=== PATIENT | male | born 1955 | race Caucasian/White ===

== ENCOUNTER 2024-03-31 11:37 | Observation (INO) ==
--- NOTE | 2024-03-31 11:53 | Emergency Department Note ---
Impression & Plan Nausea & vomiting ADMIT ED Provider Note HPI: History obtained from patient. The patient is a 69-year-old gentleman with history of depression, hyperlipidemia, presents the emergency department with chief complaint of acute onset nausea and vomiting as well as diaphoresis that began about 1 hour prior to arrival to the ER. Patient states he began to feel acutely unwell at this time and had several episodes of vomiting. Patient was with a friend at the time he contacted EMS for the patient to come to the ER to be assessed. Patient denies any chest pain, denies any abdominal pain. On arrival here to the ED the patient is hemodynamically stable although he is somewhat diaphoretic and generally appears to be in mild distress secondary to his nausea/vomiting. ROS: - Per HPI Differential Diagnosis: Acute coronary syndrome, small bowel obstruction, aortic dissection, viral gastroenteritis, acute appendicitis, acute cholecystitis, migraine complex, new onset DKA, amongst other potential pathologies. *Outpatient medications and allergy history reviewed. 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 Lab work shows no leukocytosis, hemoglobin is normal at 14.0, platelet count is normal, CMP does not show any evidence of any critical findings, troponin is noted to be negative x 1, lactic acid is mildly elevated at 2.2. Patient was given IV fluids here in the ED, EKG does not show any evidence of acute ischemic changes. CT imaging of the chest as well as CT imaging of the abdomen pelvis were performed given the patient's clinical appearance on arrival with nausea and vomiting, this does not show any evidence of aortic dissection, no evidence of any acute surgical abnormalities noted within the abdomen/pelvis per the interpreting radiologist. Chest x-ray did show some evidence of nonspecific interstitial thickening, given the patient's nausea and vomiting blood cultures were ordered and he was given a dose of IV Unasyn. He was noted to have some hypoxia on room air here after vomiting down to 77% O2 saturation that did improve with nasal cannula oxygen. On my reassessment the patient states he is feeling improved, he was noted to have some hypothermia here in the ED on rectal temperature to 34.5 Celsius and was placed on Santhosh hugger and given warmed IV fluids with good improvement in temperature back to normal limits. Given his constellation of symptoms, hypothermia, as well as possible concern for aspiration pneumonia with an episode of hypoxia, I did discuss the patient's presentation with the on-call hospitalist, Dr. Petty, and the patient will be admitted to the hospitalist service for further management. Prior to admission the patient states he did have a mild headache today, he states that he had surgery on his nasal septum about 3 weeks ago at [facility]. I do not see any obvious abnormalities within the nasal cavity, will defer to the hospitalist service for further management at this time. Patient has no fever, no leukocytosis, no neutrophilic predominance on CBC with differential, I have low suspicion for meningitis at this time. Consultants/Discussions held with other healthcare providers: -Hospitalist, Dr. Petty Disposition discussion held by myself with: -Patient Diagnosis: 1. Hypoxia, acute 2. Concern for aspiration pneumonia 3. Nausea and vomiting, acute 4. Lactic acidosis, acute Disposition: Admission Jayson Henry DO Emergency Medicine Past Med/Surg History Problem List (Updated 03/31/24 @ 15:52 by Ventura Petty MD) Hypothermia Nausea and vomiting Hyperlipidemia Depression Macular degeneration Vision problem Medical History (Updated 03/31/24 @ 15:52 by Ventura Petty MD) Kidney stone Surgical History (Updated 11/07/23 @ 09:15 by Julianne Sandoval LPN) Status post panniculectomy History of hernia surgery History of carpal tunnel release History of prostatectomy Family History (Updated 11/07/23 @ 09:16 by Julianne Sandoval LPN) Other Family history unknown Social History (Updated 11/09/23 @ 10:45 by Julianne Sandoval LPN) Smoking Status: Unknown if ever smoked Age Started Using Tobacco: 13; Age Quit Using Tobacco: 45; packs per day: 2; Do You Dip or Chew Tobacco: No; Hx Alcohol Use: No Hx Substance Use: No Visual Impairment: Partially Limited marital status: / Current Living Situation: Significant Other Current Living Situation Comment: Lives with girlfriend current occupational status: retired Feels Safe at Home: Yes Diet: regular caffeine: Yes Dental Care, Regularly: No Physical Activity Frequency: 1-2 Times per Week Seatbelt Use: always Sunscreen Use: Yes Assistive Devices: Denture - Upper, Denture - Lower and Glasses Allergies Allergies Allergy/AdvReac Type Severity Reaction Status Date / Time No Known Allergies Allergy Verified 03/31/24 15:30 Home Meds Previous Rx's Medication Instructions Recorded atorvastatin 40 mg tablet 40 mg PO DAILY #30 tabs 11/07/23 fluticasone propionate 50 1 spray intranasal DAILY #16 grams 11/07/23 mcg/actuation nasal spray,suspension (Allergy Relief (fluticasone)) sertraline 50 mg tablet 50 mg PO DAILY #30 tabs 11/07/23 vitamins A,C,[id number] 4,296 1 cap PO BID #60 caps 11/07/23 mcg-226 mg-90 mg capsule (PreserVision AREDS) Results & Data (ED) Vital Signs Vital Signs - 24 hr 03/31/24 11:44 03/31/24 12:15 03/31/24 12:18 Temperature Temperature Source Pulse Rate 67 68 Pulse Rate [Apical] Pulse Rate from SpO2 Sensor 67 Pulse Rhythm [Apical] Respiratory Rate 25 H 10 L Respiratory Effort / Characteristics Respiratory Depth Respiratory Pattern Blood Pressure 134/86 126/64 Blood Pressure [Right Arm] Blood Pressure Mean 102 82 Blood Pressure Mean [Right Arm] Pulse Oximetry 98 95 Oxygen Delivery Method Room Air Oxygen Flow Rate Sepsis Recent Fever Within 48 Hours No Sepsis New/Unexplained Change in Mental Status N/A Sepsis Action Taken by Nursing No Action Required 03/31/24 12:18 03/31/24 12:21 03/31/24 12:22 Temperature Temperature Source Pulse Rate 66 75 Pulse Rate [Apical] Pulse Rate from SpO2 Sensor 75 Pulse Rhythm [Apical] Respiratory Rate 19 Respiratory Effort / Characteristics Respiratory Depth Respiratory Pattern Blood Pressure Blood Pressure [Right Arm] Blood Pressure Mean Blood Pressure Mean [Right Arm] Pulse Oximetry 99 95 Oxygen Delivery Method Room Air Oxygen Flow Rate Sepsis Recent Fever Within 48 Hours Sepsis New/Unexplained Change in Mental Status Sepsis Action Taken by Nursing 03/31/24 12:22 03/31/24 12:25 03/31/24 12:25 Temperature 34.5 C L Temperature Source Rectal Pulse Rate 68 Pulse Rate [Apical] 68 Pulse Rate from SpO2 Sensor Pulse Rhythm [Apical] Regular Respiratory Rate 16 Respiratory Effort / Characteristics Non-Labored Spontaneous Respiratory Depth Normal Respiratory Pattern Regular Blood Pressure 130/68 Blood Pressure [Right Arm] 137/73 Blood Pressure Mean 80 Blood Pressure Mean [Right Arm] 94 Pulse Oximetry 92 91 Oxygen Delivery Method Room Air Room Air Oxygen Flow Rate Sepsis Recent Fever Within 48 Hours Sepsis New/Unexplained Change in Mental Status Sepsis Action Taken by Nursing 03/31/24 12:25 03/31/24 12:25 03/31/24 12:27 Temperature Temperature Source Pulse Rate Pulse Rate [Apical] Pulse Rate from SpO2 Sensor 69 Pulse Rhythm [Apical] Respiratory Rate 15 Respiratory Effort / Characteristics Respiratory Depth Respiratory Pattern Blood Pressure 130/68 130/68 Blood Pressure [Right Arm] Blood Pressure Mean 80 80 Blood Pressure Mean [Right Arm] Pulse Oximetry 97 Oxygen Delivery Method Oxygen Flow Rate Sepsis Recent Fever Within 48 Hours Sepsis New/Unexplained Change in Mental Status Sepsis Action Taken by Nursing 03/31/24 12:30 03/31/24 12:35 03/31/24 12:35 Temperature Temperature Source Pulse Rate 70 Pulse Rate [Apical] Pulse Rate from SpO2 Sensor 70 Pulse Rhythm [Apical] Respiratory Rate 12 Respiratory Effort / Characteristics Respiratory Depth Respiratory Pattern Blood Pressure 142/73 H 142/73 H Blood Pressure [Right Arm] Blood Pressure Mean 101 101 Blood Pressure Mean [Right Arm] Pulse Oximetry 96 Oxygen Delivery Method Oxygen Flow Rate Sepsis Recent Fever Within 48 Hours Sepsis New/Unexplained Change in Mental Status Sepsis Action Taken by Nursing 03/31/24 12:40 03/31/24 12:45 03/31/24 12:48 Temperature Temperature Source Pulse Rate 64 67 Pulse Rate [Apical] Pulse Rate from SpO2 Sensor 65 67 Pulse Rhythm [Apical] Respiratory Rate 13 20 Respiratory Effort / Characteristics Respiratory Depth Respiratory Pattern Blood Pressure 131/75 Blood Pressure [Right Arm] Blood Pressure Mean 87 Blood Pressure Mean [Right Arm] Pulse Oximetry 77 L 99 99 Oxygen Delivery Method Nasal Cannula Oxygen Flow Rate 3 Sepsis Recent Fever Within 48 Hours Sepsis New/Unexplained Change in Mental Status Sepsis Action Taken by Nursing 03/31/24 12:50 03/31/24 12:50 03/31/24 13:18 Temperature Temperature Source Pulse Rate 70 Pulse Rate [Apical] Pulse Rate from SpO2 Sensor 70 Pulse Rhythm [Apical] Respiratory Rate 15 Respiratory Effort / Characteristics Respiratory Depth Respiratory Pattern Blood Pressure 140/71 140/71 Blood Pressure [Right Arm] Blood Pressure Mean 90 90 Blood Pressure Mean [Right Arm] Pulse Oximetry 100 Oxygen Delivery Method Oxygen Flow Rate Sepsis Recent Fever Within 48 Hours Sepsis New/Unexplained Change in Mental Status Sepsis Action Taken by Nursing 03/31/24 13:20 03/31/24 13:20 03/31/24 13:20 Temperature Temperature Source Pulse Rate Pulse Rate [Apical] Pulse Rate from SpO2 Sensor Pulse Rhythm [Apical] Respiratory Rate Respiratory Effort / Characteristics Respiratory Depth Respiratory Pattern Blood Pressure 128/68 128/68 128/68 Blood Pressure [Right Arm] Blood Pressure Mean 88 88 88 Blood Pressure Mean [Right Arm] Pulse Oximetry Oxygen Delivery Method Oxygen Flow Rate Sepsis Recent Fever Within 48 Hours Sepsis New/Unexplained Change in Mental Status Sepsis Action Taken by Nursing 03/31/24 13:21 03/31/24 13:30 03/31/24 13:30 Temperature Temperature Source Pulse Rate 68 Pulse Rate [Apical] Pulse Rate from SpO2 Sensor 68 Pulse Rhythm [Apical] Respiratory Rate 16 Respiratory Effort / Characteristics Respiratory Depth Respiratory Pattern Blood Pressure 129/69 129/69 Blood Pressure [Right Arm] Blood Pressure Mean 83 83 Blood Pressure Mean [Right Arm] Pulse Oximetry 99 Oxygen Delivery Method Oxygen Flow Rate Sepsis Recent Fever Within 48 Hours Sepsis New/Unexplained Change in Mental Status Sepsis Action Taken by Nursing 03/31/24 13:30 03/31/24 13:33 03/31/24 13:36 Temperature Temperature Source Pulse Rate 69 68 Pulse Rate [Apical] Pulse Rate from SpO2 Sensor 69 68 Pulse Rhythm [Apical] Respiratory Rate 14 17 Respiratory Effort / Characteristics Respiratory Depth Respiratory Pattern Blood Pressure 129/69 Blood Pressure [Right Arm] Blood Pressure Mean 83 Blood Pressure Mean [Right Arm] Pulse Oximetry 100 99 Oxygen Delivery Method Oxygen Flow Rate Sepsis Recent Fever Within 48 Hours Sepsis New/Unexplained Change in Mental Status Sepsis Action Taken by Nursing 03/31/24 13:50 03/31/24 14:00 03/31/24 14:00 Temperature 34.1 C L Temperature Source Rectal Pulse Rate Pulse Rate [Apical] 67 Pulse Rate from SpO2 Sensor Pulse Rhythm [Apical] Respiratory Rate 15 Respiratory Effort / Characteristics Non-Labored Spontaneous Respiratory Depth Normal Respiratory Pattern Blood Pressure 127/65 130/78 Blood Pressure [Right Arm] 154/94 H Blood Pressure Mean 89 107 Blood Pressure Mean [Right Arm] 114 Pulse Oximetry 95 Oxygen Delivery Method Nasal Cannula Oxygen Flow Rate 1 Sepsis Recent Fever Within 48 Hours Sepsis New/Unexplained Change in Mental Status Sepsis Action Taken by Nursing 03/31/24 14:00 03/31/24 14:00 03/31/24 14:00 Temperature Temperature Source Pulse Rate 67 Pulse Rate [Apical] Pulse Rate from SpO2 Sensor 65 Pulse Rhythm [Apical] Respiratory Rate 16 Respiratory Effort / Characteristics Respiratory Depth Respiratory Pattern Blood Pressure 130/78 130/78 Blood Pressure [Right Arm] Blood Pressure Mean 107 107 Blood Pressure Mean [Right Arm] Pulse Oximetry 100 Oxygen Delivery Method Oxygen Flow Rate Sepsis Recent Fever Within 48 Hours Sepsis New/Unexplained Change in Mental Status Sepsis Action Taken by Nursing 03/31/24 14:03 03/31/24 14:10 03/31/24 14:10 Temperature Temperature Source Pulse Rate 67 Pulse Rate [Apical] Pulse Rate from SpO2 Sensor 67 Pulse Rhythm [Apical] Respiratory Rate 17 Respiratory Effort / Characteristics Respiratory Depth Respiratory Pattern Blood Pressure 135/73 135/73 Blood Pressure [Right Arm] Blood Pressure Mean 85 85 Blood Pressure Mean [Right Arm] Pulse Oximetry 99 Oxygen Delivery Method Oxygen Flow Rate Sepsis Recent Fever Within 48 Hours Sepsis New/Unexplained Change in Mental Status Sepsis Action Taken by Nursing 03/31/24 14:10 03/31/24 14:20 03/31/24 14:21 Temperature Temperature Source Pulse Rate 68 Pulse Rate [Apical] Pulse Rate from SpO2 Sensor 69 Pulse Rhythm [Apical] Respiratory Rate 10 L Respiratory Effort / Characteristics Respiratory Depth Respiratory Pattern Blood Pressure 135/73 154/94 H Blood Pressure [Right Arm] Blood Pressure Mean 85 104 Blood Pressure Mean [Right Arm] Pulse Oximetry 97 Oxygen Delivery Method Oxygen Flow Rate Sepsis Recent Fever Within 48 Hours Sepsis New/Unexplained Change in Mental Status Sepsis Action Taken by Nursing 03/31/24 14:22 03/31/24 14:30 03/31/24 14:30 Temperature 34.3 C L Temperature Source Oral Pulse Rate Pulse Rate [Apical] Pulse Rate from SpO2 Sensor Pulse Rhythm [Apical] Respiratory Rate Respiratory Effort / Characteristics Respiratory Depth Respiratory Pattern Blood Pressure 105/74 105/74 Blood Pressure [Right Arm] Blood Pressure Mean 80 80 Blood Pressure Mean [Right Arm] Pulse Oximetry Oxygen Delivery Method Oxygen Flow Rate Sepsis Recent Fever Within 48 Hours Sepsis New/Unexplained Change in Mental Status Sepsis Action Taken by Nursing 03/31/24 14:30 03/31/24 14:30 03/31/24 14:30 Temperature Temperature Source Pulse Rate 70 Pulse Rate [Apical] Pulse Rate from SpO2 Sensor 70 Pulse Rhythm [Apical] Respiratory Rate 14 Respiratory Effort / Characteristics Respiratory Depth Respiratory Pattern Blood Pressure 105/74 105/74 Blood Pressure [Right Arm] Blood Pressure Mean 80 80 Blood Pressure Mean [Right Arm] Pulse Oximetry 97 Oxygen Delivery Method Oxygen Flow Rate Sepsis Recent Fever Within 48 Hours Sepsis New/Unexplained Change in Mental Status Sepsis Action Taken by Nursing 03/31/24 14:40 03/31/24 14:51 03/31/24 14:51 Temperature Temperature Source Pulse Rate Pulse Rate [Apical] Pulse Rate from SpO2 Sensor Pulse Rhythm [Apical] Respiratory Rate Respiratory Effort / Characteristics Respiratory Depth Respiratory Pattern Blood Pressure 139/72 134/70 134/70 Blood Pressure [Right Arm] Blood Pressure Mean 100 102 102 Blood Pressure Mean [Right Arm] Pulse Oximetry Oxygen Delivery Method Oxygen Flow Rate Sepsis Recent Fever Within 48 Hours Sepsis New/Unexplained Change in Mental Status Sepsis Action Taken by Nursing 03/31/24 14:51 03/31/24 14:57 03/31/24 15:00 Temperature Temperature Source Pulse Rate 77 78 Pulse Rate [Apical] Pulse Rate from SpO2 Sensor 77 78 Pulse Rhythm [Apical] Respiratory Rate 16 12 Respiratory Effort / Characteristics Respiratory Depth Respiratory Pattern Blood Pressure 133/65 Blood Pressure [Right Arm] Blood Pressure Mean 78 Blood Pressure Mean [Right Arm] Pulse Oximetry 97 96 Oxygen Delivery Method Oxygen Flow Rate Sepsis Recent Fever Within 48 Hours Sepsis New/Unexplained Change in Mental Status Sepsis Action Taken by Nursing 03/31/24 15:00 03/31/24 15:03 03/31/24 15:10 Temperature Temperature Source Pulse Rate 76 Pulse Rate [Apical] Pulse Rate from SpO2 Sensor 76 Pulse Rhythm [Apical] Respiratory Rate 15 Respiratory Effort / Characteristics Respiratory Depth Respiratory Pattern Blood Pressure 133/65 133/66 Blood Pressure [Right Arm] Blood Pressure Mean 78 75 Blood Pressure Mean [Right Arm] Pulse Oximetry 98 Oxygen Delivery Method Oxygen Flow Rate Sepsis Recent Fever Within 48 Hours Sepsis New/Unexplained Change in Mental Status Sepsis Action Taken by Nursing 03/31/24 15:13 03/31/24 15:24 Temperature 36.4 C Temperature Source Oral Pulse Rate 74 Pulse Rate [Apical] Pulse Rate from SpO2 Sensor 74 Pulse Rhythm [Apical] Respiratory Rate 14 Respiratory Effort / Characteristics Respiratory Depth Respiratory Pattern Blood Pressure Blood Pressure [Right Arm] Blood Pressure Mean Blood Pressure Mean [Right Arm] Pulse Oximetry 96 Oxygen Delivery Method Oxygen Flow Rate Sepsis Recent Fever Within 48 Hours Sepsis New/Unexplained Change in Mental Status Sepsis Action Taken by Nursing Laboratory Data 03/31/24 12:07 03/31/24 12:07 Lab Results 03/31/24 03/31/24 03/31/24 Range/Units 11:44 12:01 12:07 WBC 7.74 (4.8-10.8) K/ul RBC 4.60 L (4.70-6.10) M/uL Hgb 14.0 (14.0-18.0) g/dl POC Hgb 13.9 L (14.0-18.0) g/dl Hct 40.6 L (42.0-52.0) % POC Hct 41 L (42-52) % MCV 88.3 (80.0-100.0) fL MCH 30.4 (25.0-34.0) pg MCHC 34.5 (32.0-36.0) g/dL RDW Std Deviation 44.0 (36.4-46.3) fL RDW Coeff of Myrna 13.4 (11.5-14.5) % Plt Count 225 (130-400) K/uL MPV 9.2 L (9.4-12.4) fL Immature Gran % (Auto) 0.4 % Neut % (Auto) 66.6 % Lymph % (Auto) 25.1 % [place] % (Auto) 6.1 % Eos % (Auto) 1.2 % Baso % (Auto) 0.6 % Neut # (Auto) 5.16 (1.40-6.50) K/uL Lymph # (Auto) 1.94 (1.20-3.40) K/uL [place] # (Auto) 0.47 (0.11-0.59) K/uL Eos # (Auto) 0.09 (0.00-0.50) K/uL Baso # (Auto) 0.05 (0.00-0.20) K/uL Immature Gran # (Auto) 0.03 (0.01-0.20) K/uL ESR 44 H (0-20) mm/hr PT 10.9 (9.0-12.0) Seconds INR 1.0 (0.9-1.1) APTT 24 (21-31) Seconds PTT Ratio 0.9 POC Sodium 139 (135-144) mmol/L Sodium 138 (136-145) mmol/L POC Potassium 3.6 (3.3-5.0) mmol/L Potassium 3.6 (3.5-5.1) mmol/L POC Chloride 105 (101-112) mmol/L Chloride 103 (98-107) mmol/L Carbon Dioxide 23 (21-32) mmol/L POC Total CO2 22 L (24-31) mmol/L Anion Gap 12 H (3-11) POC Anion Gap 17.0 (16-25) mmol/L POC BUN 14 (7-18) mg/dl BUN 14 (6-23) mg/dl Creatinine 0.78 (0.6-1.4) mg/dl POC Creatinine 0.8 (0.6-1.3) mg/dl Est Cr Clr Drug Dosing 82.0 ml/min Est GFR ( Amer) 105.3 ml/min Est GFR (Non-Af Amer) 90.8 ml/min BUN/Creatinine Ratio 17.9 (10-20) Glucose 152 H (70-99(Fasting)) mg/dl POC Glucose 152 H (70-99) mg/dl POC Glucose (other) 154 H (70-99) mg/dl Lactate 2.2 H* (0.4-2.0) mmol/L Calcium 9.5 (8.6-10.3) mg/dl POC Ioniz Calcium [place] 1.09 L (1.12-1.32) mmol/l Phosphorus 3.2 (2.5-4.9) mg/dl Magnesium 1.9 (1.7-2.4) mg/dl Total Bilirubin 0.7 (0.2-1.0) mg/dl AST 24 (13-39) U/L ALT 16 (7-52) U/L Alkaline Phosphatase 74 (34-104) U/L Troponin I High Sens 3.6 (0-20) pg/ml C-Reactive Protein < 0.50 (0-0.5) mg/dl Total Protein 8.3 (6.0-8.3) gm/dl Albumin 4.4 (3.4-5.0) gm/dl Globulin 3.9 (2.5-4.0) gm/dl Albumin/Globulin Ratio 1.1 (0.9-2) Lipase 34 (11-82) U/L TSH 2.194 (0.300-4.500) uIu/ml Ethyl Alcohol mg/dL (<10.0) mg/dl Adenovirus (PCR) (NotDetected) B. pertussis DNA (PCR) (NotDetected) B.parapertussis DNA PCR (NotDetected) C. pneumoniae DNA (PCR) (NotDetected) Coronavirus OC43 (PCR) (NotDetected) Coronavirus HKU1 (PCR) (NotDetected) Coronavirus 229E (PCR) (NotDetected) SARS-CoV-2 (PCR) (NotDetected) Coronavirus NL63 (PCR) (NotDetected) Human Metapneumovir PCR (NotDetected) Influenza Type A (PCR) (NotDetected) Influenza Type B (PCR) (NotDetected) M. pneumoniae (PCR) (NotDetected) Parainfluenza 1 (PCR) (NotDetected) Parainfluenza 2 (PCR) (NotDetected) Parainfluenza 3 (PCR) (NotDetected) Parainfluenza 4 (PCR) (NotDetected) RSV (PCR) (NotDetected) Entero/Rhino (PCR) (NotDetected) 03/31/24 03/31/24 Range/Units 12:32 14:17 WBC (4.8-10.8) K/ul RBC (4.70-6.10) M/uL Hgb (14.0-18.0) g/dl POC Hgb (14.0-18.0) g/dl Hct (42.0-52.0) % POC Hct (42-52) % MCV (80.0-100.0) fL MCH (25.0-34.0) pg MCHC (32.0-36.0) g/dL RDW Std Deviation (36.4-46.3) fL RDW Coeff of Myrna (11.5-14.5) % Plt Count (130-400) K/uL MPV (9.4-12.4) fL Immature Gran % (Auto) % Neut % (Auto) % Lymph % (Auto) % [place] % (Auto) % Eos % (Auto) % Baso % (Auto) % Neut # (Auto) (1.40-6.50) K/uL Lymph # (Auto) (1.20-3.40) K/uL [place] # (Auto) (0.11-0.59) K/uL Eos # (Auto) (0.00-0.50) K/uL Baso # (Auto) (0.00-0.20) K/uL Immature Gran # (Auto) (0.01-0.20) K/uL ESR (0-20) mm/hr PT (9.0-12.0) Seconds INR (0.9-1.1) APTT (21-31) Seconds PTT Ratio POC Sodium (135-144) mmol/L Sodium (136-145) mmol/L POC Potassium (3.3-5.0) mmol/L Potassium (3.5-5.1) mmol/L POC Chloride (101-112) mmol/L Chloride (98-107) mmol/L Carbon Dioxide (21-32) mmol/L POC Total CO2 (24-31) mmol/L Anion Gap (3-11) POC Anion Gap (16-25) mmol/L POC BUN (7-18) mg/dl BUN (6-23) mg/dl Creatinine (0.6-1.4) mg/dl POC Creatinine (0.6-1.3) mg/dl Est Cr Clr Drug Dosing ml/min Est GFR ( Amer) ml/min Est GFR (Non-Af Amer) ml/min BUN/Creatinine Ratio (10-20) Glucose (70-99(Fasting)) mg/dl POC Glucose (70-99) mg/dl POC Glucose (other) (70-99) mg/dl Lactate 1.8 (0.4-2.0) mmol/L Calcium (8.6-10.3) mg/dl POC Ioniz Calcium [place] (1.12-1.32) mmol/l Phosphorus (2.5-4.9) mg/dl Magnesium (1.7-2.4) mg/dl Total Bilirubin (0.2-1.0) mg/dl AST (13-39) U/L ALT (7-52) U/L Alkaline Phosphatase (34-104) U/L Troponin I High Sens (0-20) pg/ml C-Reactive Protein (0-0.5) mg/dl Total Protein (6.0-8.3) gm/dl Albumin (3.4-5.0) gm/dl Globulin (2.5-4.0) gm/dl Albumin/Globulin Ratio (0.9-2) Lipase (11-82) U/L TSH (0.300-4.500) uIu/ml Ethyl Alcohol mg/dL < 10.0 (<10.0) mg/dl Adenovirus (PCR) Not Detected (NotDetected) B. pertussis DNA (PCR) Not Detected (NotDetected) B.parapertussis DNA PCR Not Detected (NotDetected) C. pneumoniae DNA (PCR) Not Detected (NotDetected) Coronavirus OC43 (PCR) Not Detected (NotDetected) Coronavirus HKU1 (PCR) Not Detected (NotDetected) Coronavirus 229E (PCR) Not Detected (NotDetected) SARS-CoV-2 (PCR) Not Detected (NotDetected) Coronavirus NL63 (PCR) Not Detected (NotDetected) Human Metapneumovir PCR Not Detected (NotDetected) Influenza Type A (PCR) Not Detected (NotDetected) Influenza Type B (PCR) Not Detected (NotDetected) M. pneumoniae (PCR) Not Detected (NotDetected) Parainfluenza 1 (PCR) Not Detected (NotDetected) Parainfluenza 2 (PCR) Not Detected (NotDetected) Parainfluenza 3 (PCR) Not Detected (NotDetected) Parainfluenza 4 (PCR) Not Detected (NotDetected) RSV (PCR) Not Detected (NotDetected) Entero/Rhino (PCR) Not Detected (NotDetected) Administered Medications Discontinued Medications Sodium Chloride (Nss) 1,000 mls @ 999 mls/hr IV .Q1H1M STA Stop: 03/31/24 12:51 Last Infusion: 03/31/24 14:34 Dose: Infused Documented By: Admin: 03/31/24 12:06 Dose: 999 mls/hr Documented By: KATHRYN Sodium Chloride (Nss) 1,000 mls @ 999 mls/hr IV .Q1H1M ONE Stop: 03/31/24 15:20 Last Infusion: 03/31/24 15:34 Dose: Infused Documented By: Admin: 03/31/24 14:31 Dose: 999 mls/hr Documented By: KATHRYN Ampicillin Sodium/Sulbactam Sodium 3,000 mg/ Sodium Chloride 100 mls @ 200 mls/hr IV NOW STA Stop: 03/31/24 14:50 Last Infusion: 03/31/24 15:36 Dose: Infused Documented By: Admin: 03/31/24 15:05 Dose: 200 mls/hr Documented By: KATHRYN Ioversol (Optiray 320 125ml) 112 ml IV ONCE ONE Stop: 03/31/24 12:59 Last Admin: 03/31/24 12:59 Dose: 112 ml Documented By: TERESO Ondansetron HCl (Ondansetron Inj 2 Mg/Ml 2 Ml Vial) 4 mg IV NOW STA Stop: 03/31/24 11:52 Last Admin: 03/31/24 12:06 Dose: 4 mg Documented By: [facility] Data Radiologist's Impression: Chest X-Ray 03/31/24 11:51 XR chest 1V portable HISTORY: Chest pain, nonspecific COMPARISON: None. FINDINGS: No pneumothorax. No pleural effusions. Slightly rotated study. The cardiac silhouette is borderline enlarged. No evidence for pulmonary edema. No acute fractures. Bibasilar interstitial thickening is noted. Suspect mild emphysema. IMPRESSION: Bibasilar interstitial thickening. This is nonspecific and could be due to vascular crowding, chronic change, or an interstitial pneumonitis. This will be better assessed on the same day chest CTA. ACT 112: Negative or not required by law. Electronically signed by: Barrie Oden M.D. 03/31/2024 12:54 PM Abdomen/Pelvis CT 03/31/24 12:19 CT abd pelvis IV con only CLINICAL HISTORY: N/V TECHNIQUE: Helical axial images of the abdomen and pelvis were obtained and displayed. Automated dose lowering techniques and/or adjustment according to patient size were utilized for this exam. This exam was performed with intravenous contrast. COMPARISON: None available at the time of this dictation. FINDINGS: Lower chest: Bibasilar atelectasis versus scarring is seen. Liver: Unremarkable. No focal lesions are seen. Gallbladder and biliary tree: No calcified gallstones. Normal caliber wall. No intra- or extrahepatic biliary ductal dilation. Pancreas: Unremarkable, no focal lesions. Spleen: Unremarkable. Adrenals: Unremarkable. Kidneys and ureters: 14 mm hyperdense lesion in the left kidney inferior pole. Additional cysts and subcentimeter hypodensities are seen bilaterally. Bladder: Unremarkable. Reproductive organs: Status post prostatectomy. Bowel: Diverticulosis is seen without diverticulitis. The appendix is normal. There is a small hiatal hernia. Lymph nodes Retroperitoneal: Unremarkable. Pelvic: Unremarkable. Mesenteric: Unremarkable. Peritoneum: Postsurgical changes are seen in the pelvis. Vessels: Atherosclerotic calcifications are seen. Abdominal wall: Right inguinal hernia repair changes are seen. Bones: Degenerative changes in the visualized spine. IMPRESSION: No acute abnormality and in particular no evidence of bowel obstruction or appendicitis. There is a small hiatal hernia. ACT 112: Negative or not required by law. Electronically signed by: Clifton Wiggins M.D. 03/31/2024 2:10 PM Chest CTA 03/31/24 12:19 CT angio chest dissec wo/w con CLINICAL HISTORY: N/V, diaphoresis TECHNIQUE: Multidetector row helical CT of the chest was performed before and after injection of IV contrast. Coronal, sagittal, and MIP reformations were obtained. Automated dose lowering techniques and/or adjustment according to patient size were utilized for this exam. CT DOSE: 2967.48 mGy.cm Comparison: None available at the time of this dictation. FINDINGS: Lungs and pleura: Atelectasis versus scarring is seen in the dependent portions of the lungs. Peripheral predominant emphysema is seen. Heart and pericardium: Heart size is normal. No pericardial effusion. Vessels: No aortic dissection or intramural hematoma is seen. Mild atherosclerosis is seen. Mediastinum and nancy: Subcentimeter lymph nodes are seen. Chest wall and lower neck: Unremarkable. Abdomen: For findings below the diaphragm, please refer to CT of the abdomen dated the same. Bones: Degenerative changes in the thoracic spine. IMPRESSION: No acute abnormality and in particular no evidence of acute aortic injury. ACT 112: Negative or not required by law. Electronically signed by: Clifton Wiggins M.D. 03/31/2024 1:57 PM Discharge Plan Visit Data Chief Complaint: Weakness Stated Complaint: WEAKNESS, NAUSEA, VOMITING, DIZZINESS ED Provider: Jayson Henry Discharge Problem: Nausea & vomiting Forms Stand Alone Forms: [facility] Prescriptions Prescriptions: No Action sertraline 50 mg tablet 50 mg PO DAILY Qty: 30 2RF atorvastatin 40 mg tablet 40 mg PO DAILY Qty: 30 2RF fluticasone propionate [Allergy Relief (fluticasone)] 50 mcg/actuation spray,suspension 1 spray intranasal DAILY Qty: 16 2RF Rx Instructions: administer into each nostril PreserVision AREDS 4,296 mcg-226 mg-90 mg capsule 1 cap PO BID Qty: 60 2RF Referrals Referrals: Anderson Rosado, [Primary Care Provider] -
[2024-03-31] MEDS: SODIUM CHLORIDE 0.9% 1,000 ML IV STA (12:06)
[2024-03-31] MEDS: ONDANSETRON INJ 2 MG/ML 2 ML VIAL IV STA (12:06)
[2024-03-31 12:14] LABS: iSTAT Creatinine 0.8 mg/dl (0.6-1.3); iSTAT Hemoglobin 13.9 g/dl (14.0-18.0); iSTAT Ionized Calcium 1.09 mmol/l (1.12-1.32); iSTAT Potassium 3.6 mmol/L (3.3-5.0)
[2024-03-31 12:49] LABS: Basophils # (auto) 0.05 K/uL (0.00-0.20); Basophils % (auto) 0.6 %; Eosinophils # (auto) 0.09 K/uL (0.00-0.50); Eosinophils % (auto) 1.2 %; Hematocrit (blood only) 40.6 % (42.0-52.0); Immature Granulocytes # (auto) 0.03 K/uL (0.01-0.20); Immature Granulocytes % (auto) 0.4 %; Lymphocytes # (auto) 1.94 K/uL (1.20-3.40); Lymphocytes % (auto) 25.1 %; Mean Corpuscular Hemoglobin 30.4 pg (25.0-34.0); Mean Corpuscular Hgb Conc 34.5 g/dL (32.0-36.0); Mean Corpuscular Volume 88.3 fL (80.0-100.0); Mean Platelet Volume 9.2 fL (9.4-12.4); Monocytes # (auto) 0.47 K/uL (0.11-0.59); Monocytes % (auto) 6.1 %; Neutrophils # (auto) 5.16 K/uL (1.40-6.50); Neutrophils % (auto) 66.6 %; Platelet Count 225 K/uL (130-400); RDW Coefficient of Variation 13.4 % (11.5-14.5); White Blood Count 7.74 K/ul (4.8-10.8)
--- NOTE | 2024-03-31 12:55 | XRay Report ---
XR chest 1V portable HISTORY: Chest pain, nonspecific COMPARISON: None. FINDINGS: No pneumothorax. No pleural effusions. Slightly rotated study. The cardiac silhouette is keim rderline enlarged. No evidence for pulmonary edema. No acute fractures. Bibasilar interstitial thicke yue is noted. Suspect mild emphysema. IMPRESSION: Bibasilar interstitial thickening. This is nonspecific and could be due to vascular crowding, chronic change, or an interstitial pneumonitis. This will be better assessed on the same day chest CTA. ACT 112: Negative or not required by law. Electronically signed by: Barrie Oden M.D. 03/31/2024 12:54 PM
[2024-03-31 12:56] LABS: Alanine Aminotransferase 16 U/L (7-52); Albumin Globulin Ratio 1.1 (0.9-2); Albumin Level 4.4 gm/dl (3.4-5.0); Alkaline Phosphatase 74 U/L (34-104); Anion Gap 12 (3-11); Aspartate Aminotransferase 24 U/L (13-39); BUN Creatinine Ratio 17.9 (10-20); Bilirubin,Total 0.7 mg/dl (0.2-1.0); Blood Urea Nitrogen 14 mg/dl (6-23); Calcium 9.5 mg/dl (8.6-10.3); Carbon Dioxide 23 mmol/L (21-32); Chloride 103 mmol/L (98-107); Est GFR (African American) 105.3 ml/min; Est GFR (Non-African American) 90.8 ml/min; Globulin 3.9 gm/dl (2.5-4.0); Glucose 152 mg/dl (70-99(Fasting)); Lipase 34 U/L (11-82); Potassium 3.6 mmol/L (3.5-5.1); Sodium 138 mmol/L (136-145); Total Protein 8.3 gm/dl (6.0-8.3)
[2024-03-31] MEDS: OPTIRAY 320 125ml IV ONE (12:59)
[2024-03-31 13:02] LABS: Troponin I High Sensitivity 3.6 pg/ml (0-20)
[2024-03-31 13:05] LABS: Partial Thromboplastin Ratio 0.9; Partial Thromboplastin Time 24 Seconds (21-31); Prothrombin Time 10.9 Seconds (9.0-12.0)
[2024-03-31 13:40] LABS: Adenovirus PCR Not Detected (NotDetected); Bordetella parapertussis PCR Not Detected (NotDetected); Bordetella pertussis PCR Not Detected (NotDetected); Chlamydia pneumoniae PCR Not Detected (NotDetected); Coronavirus 229E PCR Not Detected (NotDetected); Coronavirus CoV-2 (COVID19)PCR Not Detected (NotDetected); Coronavirus HKU1 PCR Not Detected (NotDetected); Coronavirus NL63 PCR Not Detected (NotDetected); Coronavirus OC43PCR Not Detected (NotDetected); Human Metapneumovirus PCR Not Detected (NotDetected); Influenza A PCR Not Detected (NotDetected); Influenza B PCR Not Detected (NotDetected); Mycoplasma pneumoniae PCR Not Detected (NotDetected); Parainfluenza Virus 1 PCR Not Detected (NotDetected); Parainfluenza Virus 2 PCR Not Detected (NotDetected); Parainfluenza Virus 3 PCR Not Detected (NotDetected); Parainfluenza Virus 4 PCR Not Detected (NotDetected); Respiratory Syncytial VirusPCR Not Detected (NotDetected); Rhinovirus/Enterovirus PCR Not Detected (NotDetected)
--- NOTE | 2024-03-31 13:58 | CT Scan Report ---
CT angio chest dissec wo/w con CLINICAL HISTORY: N/V, diaphoresis TECHNIQUE: Multidetector row helical CT of the chest was performed before and after injection of IV c ontrast. Coronal, sagittal, and MIP reformations were obtained. Automated dose lowering techniques an d/or adjustment according to patient size were utilized for this exam. CT DOSE: 2967.48 mGy.cm Comparison: None available at the time of this dictation. FINDINGS: Lungs and pleura: Atelectasis versus scarring is seen in the dependent portions of the lungs. Periphe ral predominant emphysema is seen. Heart and pericardium: Heart size is normal. No pericardial effusion. Vessels: No aortic dissection or intramural hematoma is seen. Mild atherosclerosis is seen. Mediastinum and nancy: Subcentimeter lymph nodes are seen. Chest wall and lower neck: Unremarkable. Abdomen: For findings below the diaphragm, please refer to CT of the abdomen dated the same. Bones: Degenerative changes in the thoracic spine. IMPRESSION: No acute abnormality and in particular no evidence of acute aortic injury. ACT 112: Negative or not required by law. Electronically signed by: Clifton Wiggins M.D. 03/31/2024 1:57 PM
--- NOTE | 2024-03-31 14:12 | CT Scan Report ---
CT abd pelvis IV con only CLINICAL HISTORY: N/V TECHNIQUE: Helical axial images of the abdomen and pelvis were obtained and displayed. Automated dose lowering techniques and/or adjustment according to patient size were utilized for this exam. This e xam was performed with intravenous contrast. COMPARISON: None available at the time of this dictation. FINDINGS: Lower chest: Bibasilar atelectasis versus scarring is seen. Liver: Unremarkable. No focal lesions are seen. Gallbladder and biliary tree: No calcified gallstones. Normal caliber wall. No intra- or extrahepatic biliary ductal dilation. Pancreas: Unremarkable, no focal lesions. Spleen: Unremarkable. Adrenals: Unremarkable. Kidneys and ureters: 14 mm hyperdense lesion in the left kidney inferior pole. Additional cysts and s ubcentimeter hypodensities are seen bilaterally. Bladder: Unremarkable. Reproductive organs: Status post prostatectomy. Bowel: Diverticulosis is seen without diverticulitis. The appendix is normal. There is a small hiatal hernia. Lymph nodes Retroperitoneal: Unremarkable. Pelvic: Unremarkable. Mesenteric: Unremarkable. Peritoneum: Postsurgical changes are seen in the pelvis. Vessels: Atherosclerotic calcifications are seen. Abdominal wall: Right inguinal hernia repair changes are seen. Bones: Degenerative changes in the visualized spine. IMPRESSION: No acute abnormality and in particular no evidence of bowel obstruction or appendicitis. There is a s mall hiatal hernia. ACT 112: Negative or not required by law. Electronically signed by: Clifton Wiggins M.D. 03/31/2024 2:10 PM
[2024-03-31] MEDS: SODIUM CHLORIDE 0.9% 1,000 ML IV ONE (14:31)
[2024-03-31] MEDS: AMPICILLIN/SULBACTAM SOD 3,000 MG in SODIUM CHLOR 0.9% MINI-B 100 ML IV STA (15:05)
--- NOTE | 2024-03-31 15:28 | History & Physical Report ---
Date of Service March 31, 2024 Assessment & Plan (1) Nausea and vomiting: Plan: Suspect his symptoms are due to migraines given concurrent headache, years of recurrent/intermittent symptoms, not increasing in frequency/duration/severity which he has managed to sleep off for years. Usually last for about a day therefore if not improving by tomorrow will likely have to re-think the diagnosis Continue ondansetron 4mg IV q4h PRN (2) Hypothermia: Plan: Suspect environmental with him lying on the floor with his symptoms for an hour before arriving via EMS Continue Santhosh hugger TSH to rule out myxedema coma Procalcitonin and CRP/ESR to assess for infection - no source found on history/exam/imaging (3) Headache: Plan: Bilateral therefore low suspicion of cluster headaches ?Migraines although again not typical bu would fit these intermittent episodic nausea and vomiting episode that he has had for years. No focal neurology and ongoing symptoms intermittently for years without increased severity/duration/frequency will defer any brain imaging at this time Acetaminophen 1000mg IV q8h PRN Consider follow up with headache clinic Plan VTE Prophyalxis - low risk Diet - regular Disposition - observation to med/tele Admission and Anticipated Discharge Date Admission Date: March 31, 2024 History of Present Illness Chief Complaint: Headache Nausea/vomiting Primary Care Provider: DO Gilles Soto Norbert is a 69 year old male who presents to the ER with headache, nausea, vomiting and diaphoresis. Symptoms started around 10am initially with cold sweats with a warm feeling going up the back of his neck that incapacitates him. Followed by nausea, vomiting and wanting to lie down. This turned into a headache. Headache is bilateral, non pulsating, frontal, constant with current severity 8/10, without light sensitivity. No associated lacrimation or rhinorrhea. No room spinning sensation or vision changes. He denies any marijuana, smoking or alcohol use. Initially he appeared severely unwell and hypothermic that there was concern for aortic dissection or intraabdominal pathology however labs and CT C/A/P from the ER returned unremarkable. On further discussion he reports having similar episodes that occur intermittently sometimes less than once a year, sometimes multiple times a year since childhood. The episodes last for around a day and he usually just sleeps it off. He reports wanting to just sleep off this episode which feels similar to previous episodes however his friend called EMS otherwise he would not have come to the ER. Allergies Allergy/AdvReac Type Severity Reaction Status Date / Time No Known Allergies Allergy Verified 03/31/24 15:30 Home Medications Medication Instructions Recorded Confirmed Type atorvastatin 40 mg tablet 40 mg PO DAILY #30 tabs 11/07/23 03/31/24 Rx fluticasone propionate 50 1 spray intranasal DAILY #16 grams 11/07/23 03/31/24 Rx mcg/actuation nasal spray,suspension (Allergy Relief (fluticasone)) sertraline 50 mg tablet 50 mg PO DAILY #30 tabs 11/07/23 03/31/24 Rx vitamins A,C,A-huxk-crjrzb 4,296 1 cap PO BID #60 caps 11/07/23 03/31/24 Rx mcg-226 mg-90 mg capsule (PreserVision AREDS) Past Med/Surg History Problem List (Updated 03/31/24 @ 16:16 by Ventura Petty MD) Headache Hypothermia Nausea and vomiting Hyperlipidemia Depression Macular degeneration Vision problem Medical History (Updated 03/31/24 @ 16:16 by Ventura Petty MD) Kidney stone Surgical History (Updated 11/07/23 @ 09:15 by Julianne Sandoval LPN) Status post panniculectomy History of hernia surgery History of carpal tunnel release History of prostatectomy Family History (Updated 11/07/23 @ 09:16 by Julianne Sandoval LPN) Other Family history unknown Social History (Updated 11/09/23 @ 10:45 by Julianne Sandoval LPN) Smoking Status: Former smoker Age Started Using Tobacco: 13; Age Quit Using Tobacco: 45; packs per day: 2; Do You Dip or Chew Tobacco: No; Hx Alcohol Use: No Hx Substance Use: No Preferred Language: Croatian Communication Ability: Effective Visual Impairment: Partially Limited Audit Intern Required: No Beliefs That Will Affect Care: None marital status: / Current Living Situation: Significant Other Current Living Situation Comment: home living with Silvia Galvan and able to drive current occupational status: retired Feels Safe at Home: Yes Safety Concerns: Feels Safe At This Time Diet: regular caffeine: Yes Dental Care, Regularly: No Physical Activity Frequency: 1-2 Times per Week Seatbelt Use: always Sunscreen Use: Yes Assistive Devices: Denture - Upper, Denture - Lower and Glasses Review of Systems Review of Systems: All systems reviewed & are unremarkable except as noted in HPI & below Physical Exam Constitutional: WD/WN, vitals as above + disheveled Eyes: PERRL, conjunctivae normal, anicteric sclerae no nystagmus ENMT: external ear and nose normal, oropharynx normal Respiratory: normal respiratory effort, lungs clear to auscultation Cardiovascular: RRR, no murmur, no edema Gastrointestinal (Abdomen): normal bowel sounds, soft, nontender, no hepatosplenomegaly Musculoskeletal: no cyanosis or clubbing, extremities motor strength 5/5 Skin: no rashes, warm and dry Neurologic: moves all extremities and awake; no focal motor deficits and not confused Speech / Cognition: normal speech Motor/Sensory: no tremor and no pronator drift Cranial Nerves: PERRL, EOM intact bilaterally, normal facial strength, tongue midline, able to rotate head bilaterally, able to elevate shoulders bilaterally, no nystagmus and symmetric palate elevation Psychiatric: A+Ox3, euthymic affect Genitourinary: no CVA tenderness Results & Data Results & Data Vital Signs (Past 12 Hours) Vital Signs Temp Pulse Pulse Resp BP BP Pulse Ox 03/31/24 15:13 36.4 C 03/31/24 14:22 34.3 C L 03/31/24 14:21 68 10 L 97 03/31/24 14:20 154/94 H 03/31/24 14:10 135/73 03/31/24 14:10 135/73 03/31/24 14:10 135/73 03/31/24 14:03 67 17 99 03/31/24 14:00 67 16 100 03/31/24 14:00 130/78 03/31/24 14:00 130/78 03/31/24 14:00 130/78 03/31/24 14:00 34.1 C L 67 15 154/94 H 95 03/31/24 13:50 127/65 03/31/24 13:36 68 17 99 03/31/24 13:33 69 14 100 03/31/24 13:30 129/69 03/31/24 13:30 129/69 03/31/24 13:30 129/69 03/31/24 13:21 68 16 99 03/31/24 13:20 128/68 03/31/24 13:20 128/68 03/31/24 13:20 128/68 03/31/24 13:18 70 15 100 03/31/24 12:50 140/71 03/31/24 12:50 140/71 03/31/24 12:48 67 20 99 03/31/24 12:45 64 13 99 03/31/24 12:40 131/75 77 L 03/31/24 12:35 142/73 H 03/31/24 12:35 142/73 H 03/31/24 12:30 70 12 96 03/31/24 12:27 15 97 03/31/24 12:25 130/68 03/31/24 12:25 130/68 03/31/24 12:25 130/68 03/31/24 12:25 68 91 03/31/24 12:22 34.5 C L 68 16 137/73 92 03/31/24 12:22 95 03/31/24 12:21 75 19 99 03/31/24 12:18 66 03/31/24 12:18 68 10 L 95 03/31/24 12:15 126/64 03/31/24 11:44 67 25 H 134/86 98 O2 Del Method O2 Flow Rate 03/31/24 15:13 03/31/24 14:22 03/31/24 14:21 03/31/24 14:20 03/31/24 14:10 03/31/24 14:10 03/31/24 14:10 03/31/24 14:03 03/31/24 14:00 03/31/24 14:00 03/31/24 14:00 03/31/24 14:00 03/31/24 14:00 Nasal Cannula 1 03/31/24 13:50 03/31/24 13:36 03/31/24 13:33 03/31/24 13:30 03/31/24 13:30 03/31/24 13:30 03/31/24 13:21 03/31/24 13:20 03/31/24 13:20 03/31/24 13:20 03/31/24 13:18 03/31/24 12:50 03/31/24 12:50 03/31/24 12:48 03/31/24 12:45 03/31/24 12:40 Nasal Cannula 3 03/31/24 12:35 03/31/24 12:35 03/31/24 12:30 03/31/24 12:27 03/31/24 12:25 03/31/24 12:25 03/31/24 12:25 03/31/24 12:25 Room Air 03/31/24 12:22 Room Air 03/31/24 12:22 Room Air 03/31/24 12:21 03/31/24 12:18 03/31/24 12:18 03/31/24 12:15 03/31/24 11:44 Room Air Laboratory Results Abnormal lab results 03/31/24 03/31/24 03/31/24 Range/Units 11:44 12:01 12:07 RBC 4.60 L (4.70-6.10) M/uL POC Hgb 13.9 L (14.0-18.0) g/dl Hct 40.6 L (42.0-52.0) % POC Hct 41 L (42-52) % MPV 9.2 L (9.4-12.4) fL POC Total CO2 22 L (24-31) mmol/L Anion Gap 12 H (3-11) Glucose 152 H (70-99(Fasting)) mg/dl POC Glucose 152 H (70-99) mg/dl POC Glucose (other) 154 H (70-99) mg/dl Lactate 2.2 H* (0.4-2.0) mmol/L POC Ioniz Calcium Antonietta 1.09 L (1.12-1.32) mmol/l Diagnostic Findings CT angio chest dissec wo/w con CLINICAL HISTORY: N/V, diaphoresis TECHNIQUE: Multidetector row helical CT of the chest was performed before and a fter injection of IV contrast. Coronal, sagittal, and MIP reformations were obtained. Automated dose lowering techniques and/or adjustment according to patient size were utilized for this exam. CT DOSE: 2967.48 mGy.cm Comparison: None available at the time of this dictation. FINDINGS: Lungs and pleura: Atelectasis versus scarring is seen in the dependent portions of the lungs. Peripheral predominant emphysema is seen. Heart and pericardium: Heart size is normal. No pericardial effusion. Vessels: No aortic dissection or intramural hematoma is seen. Mild atherosclerosis is seen. Mediastinum and nancy: Subcentimeter lymph nodes are seen. Chest wall and lower neck: Unremarkable. Abdomen: For findings below the diaphragm, please refer to CT of the abdomen dated the same. Bones: Degenerative changes in the thoracic spine. IMPRESSION: No acute abnormality and in particular no evidence of acute aortic injury. CT abd pelvis IV con only CLINICAL HISTORY: N/V TECHNIQUE: Helical axial images of the abdomen and pelvis were obtained and displayed. Automated dose lowering techniques and/or adjustment according to patient size were utilized for this exam. This exam was performed with intravenous contrast. COMPARISON: None available at the time of this dictation. FINDINGS: Lower chest: Bibasilar atelectasis versus scarring is seen. Liver: Unremarkable. No focal lesions are seen. Gallbladder and biliary tree: No calcified gallstones. Normal caliber wall. No intra- or extrahepatic biliary ductal dilation. Pancreas: Unremarkable, no focal lesions. Spleen: Unremarkable. Adrenals: Unremarkable. Kidneys and ureters: 14 mm hyperdense lesion in the left kidney inferior pole. Additional cysts and subcentimeter hypodensities are seen bilaterally. Bladder: Unremarkable. Reproductive organs: Status post prostatectomy. Bowel: Diverticulosis is seen without diverticulitis. The appendix is normal. There is a small hiatal hernia. Lymph nodes Retroperitoneal: Unremarkable. Pelvic: Unremarkable. Mesenteric: Unremarkable. Peritoneum: Postsurgical changes are seen in the pelvis. Vessels: Atherosclerotic calcifications are seen. Abdominal wall: Right inguinal hernia repair changes are seen. Bones: Degenerative changes in the visualized spine. IMPRESSION: No acute abnormality and in particular no evidence of bowel obstruction or appendicitis. There is a small hiatal hernia. Medications Administered ER medications Given: NSS 1L bolus Ondansetron 4mg IV NSS 1L bolus Unasyn 3000mg IV ECG Rate (beats per minute): 67 Rhythm: normal sinus Findings: no acute ischemic change Comparison ECG Date: no prior available Code Status & VTE Plan Code Status Full VTE Prophylaxis Plan VTE Prophylaxis will be ordered: Yes PG Care Time/CCT Total # of Minutes Spent Total Time Spent with Patient: Total time spent is greater than 50% in coordination of care (as documented) at patient's floor/unit and/or counseling patient: Coding Level of Care Code 21976 INT INP/OBS CARE 2/55MIN Diagnoses Nausea and vomiting R11.2 Hypothermia T68.XXXA Headache R51.9
[2024-03-31 15:39] LABS: C Reactive Protein < 0.50 mg/dl (0-0.5); Magnesium 1.9 mg/dl (1.7-2.4); Phosphorus 3.2 mg/dl (2.5-4.9)
[2024-03-31 15:54] LABS: Thyroid Stimulating Hormone 2.194 uIu/ml (0.300-4.500)
[2024-03-31] MEDS: ACETAMINOPHEN 1,000 MG/100 ML VIAL IV STA (16:40)
[2024-03-31] MEDS ORDERED: ONDANSETRON INJ 2 MG/ML 2 ML VIAL IV PRN (17:52)
--- NOTE | 2024-03-31 19:22 | Communication Note ---
Date of Service: March 31, 2024 Additional diagnosis urine retention - bladder scan 1258ml, straight cath for 900ml. UA ordered. Start tamsulosin. Monitor for recurrence.
[2024-03-31 19:38] LABS: Appearance Urine Clear (Clear); Bilirubin Urine Negative (Negative); Blood Urine Negative (Negative); Color Urine Yellow; Glucose Urine UA Negative (Negative); Ketones Urine Trace (Negative); Leukocyte Esterase Urine Negative (Negative); Nitrite Urine Negative (Negative); Protein Urine Negative (Negative); Specific Gravity Urine 1.033 (1.000-1.030); Urobilinogen Urine Negative (Negative); pH Urine 6.5 (4.5-7.5)
[2024-03-31 19:39] LABS: Amphetamines+Metham, Urine Neg (Neg); Barbiturates, Urine Neg (Neg); Benzodiazepine, Urine Neg (Neg); Cocaine, Urine Neg (Neg); Fentanyl, Urine Neg (Neg); MDMA (Ecstacy), Urine Neg (Neg); Marijuana, Urine Neg (Neg); Methadone, Urine Neg (Neg); Opiate, Urine Neg (Neg); Phencyclidine, Urine Neg (Neg)
[2024-03-31] MEDS: TAMSULOSIN HCL 0.4 MG CAP PO SCH (20:36)
[2024-03-31] MEDS: IBUPROFEN 200 MG TAB PO STA (23:16)
[2024-04-01] MEDS ORDERED: ACETAMINOPHEN 1,000 MG/100 ML VIAL IV PRN (01:00)
--- NOTE | 2024-04-01 06:21 | Electrocardiogram Report ---
Test Reason : Blood Pressure : / mmHG Vent. Rate : 067 BPM Atrial Rate : 067 BPM P-R Int : 176 ms QRS Dur : 102 ms QT Int : 460 ms P-R-T Axes : 058 050 049 degrees QTc Int : 486 ms Normal sinus rhythm Prolonged QT Abnormal ECG No previous ECGs available Confirmed by Herber Zepeda ([id number]) on 04/01/2024 6:20:37 AM Referred By: Confirmed By:Herber Zepeda
[2024-04-01] MEDS: SERTRALINE HCL 50 MG TABLET PO SCH (09:04)
[2024-04-01] MEDS: ATORVASTATIN 40 MG TAB PO SCH (09:05)
--- NOTE | 2024-04-01 09:11 | CT Scan Report ---
CT head/brain wo con CLINICAL HISTORY: vane Technique: Contiguous axial CT images of the head were acquired from the base of the skull to the krishna james without intravenous contrast administration. Images were viewed [facility] brain[facility] . Automated dose lowering techniques and/or adjustment according to patient size were utilized for this exam. Comparison: None available at the time of this dictation. Findings: The ventricles, basal cisterns, and cerebral sulci are normal. There is no acute intracranial hemorrh age or evidence of acute territorial infarction. Neither mass effect, shift of the midline structures , nor abnormal extra-axial fluid collections are shown. Imaged portions of the paranasal sinuses and mastoid air cells are clear. The orbits appear normal. There are no acute fractures of the calvaria or scalp swelling. Impression: No acute intracranial hemorrhage, no evidence of acute territorial infarction or other acute intracra nial disease process. ACT 112: Negative or not required by law. Electronically signed by: Clifton Wiggins M.D. 04/01/2024 9:10 AM
--- NOTE | 2024-04-01 11:34 | Discharge Summary ---
Date of Service April 01, 2024 Admission HPI Per Admitting Provider Gilles Toussaint is a 69 year old male who presents to the ER with headache, nausea, vomiting and diaphoresis. Symptoms started around 10am initially with cold sweats with a warm feeling going up the back of his neck that incapacitates him. Followed by nausea, vomiting and wanting to lie down. This turned into a headache. Headache is bilateral, non pulsating, frontal, constant with current severity 8/10, without light sensitivity. No associated lacrimation or rhinorrhea. No room spinning sensation or vision changes. He denies any marijuana, smoking or alcohol use. Initially he appeared severely unwell and hypothermic that there was concern for aortic dissection or intraabdominal pathology however labs and CT C/A/P from the ER returned unremarkable. On further discussion he reports having similar episodes that occur intermittently sometimes less than once a year, sometimes multiple times a year since childhood. The episodes last for around a day and he usually just sleeps it off. He reports wanting to just sleep off this episode which feels similar to previous episodes however his friend called EMS otherwise he would not have come to the ER. Admission Exam (Per Admitting) Constitutional The patient is awake, alert and oriented 3, well developed and well nourished, normocephalic and atraumatic, lying in bed and in no acute distress. HEENT--PERRL, EOMI, mucous membranes and oropharynx mildly dry Neck--supple. No JVD. No bruits. Thyroid normal, trachea midline, no adenopathy. Heart--normal S1 and S2. No murmurs, rubs or gallops. Lungs--clear bilaterally, no respiratory distress, no accessory muscle use. Abdomen--normal bowel sounds and soft. Extremities--no cyanosis or clubbing. No edema. Dermatologic--normal skin turgor, normal color, no abnormal lymph nodes, no rash. Neurologic--cranial nerves II through XII grossly intact. Rheumatologic--normal range of motion. Psychiatric--normal affect. Discharge Data Consultations 03/31/24 14:39 ED Decision to Admit Stat Hospital Course (1) Headache: Headache has resolved CT scan of the head did not show any acute pathology According to the patient, he has been having headache on and on almost his entire life. He was urged to make appointment to follow-up with a neurologist. (2) Nausea and vomiting: Now resolved Suspect his symptoms are due to migraines given concurrent headache, years of r ecurrent/intermittent symptoms, not increasing in frequency/duration/severity which he has managed to sleep off for years. Usually last for about a day therefore if not improving by tomorrow will likely have to re-think the diagnosis Continue ondansetron 4mg IV q4h PRN (3) Hypothermia: Resolved Plan VTE Prophyalxis - low risk Diet - regular Disposition - observation to med/tele Coding Level of Care Code 33242 INP/OBS DISCH >30 MIN Diagnoses Headache R51.9 Nausea and vomiting R11.2 Hypothermia T68.XXXA Time Spent (min) 35
== END 2024-04-01 12:00 | disposition home or self-care (01) ==
LOC: ED 11:37 → 2N 11:37 → SUATTDRO 16:03 → 2N 16:57